=== PATIENT | female | born 1935 | race Caucasian/White ===

== ENCOUNTER 2020-03-15 17:21 | Inpatient (IN) | payer MEDICARE ==
[~2020-03-15] VITALS: Ht 177.8 cm; Wt 63.0 kg
[2020-03-15 20:50] VITALS: BP 125/64
--- NOTE | 2020-03-15 21:45 | NUR ---
admitted 84 y/o female pt via gurney from [facility], transferred to bed via sliding board. AOx2. S/P fall and had IM nailing right humeral fx by Dr. Merrill. Sling on right arm in place. No known drug allergies. Covid negative as of 03/11/20.
[2020-03-15] MEDS ORDERED: ACET-2154 PO (23:14)
[2020-03-15] MEDS ORDERED: APIX5TAB PO (23:14)
[2020-03-15] MEDS ORDERED: QUET25TA PO (23:14)
[2020-03-15] MEDS ORDERED: AMIO200T5 PO (23:14)
[2020-03-15] MEDS ORDERED: DOCU100C36 PO (23:14)
--- NOTE | 2020-03-16 | NUR ---
senior living assessment done. Admission orders obtained. HS care rendered. Incontinent of loose BM. Kept clean and comfortable. Safety measures implemented and maintained.
[2020-03-16] MEDS: HYDROCODONE/APAP 5-325MG TABLET PO PRN (01:49)
[2020-03-16 04:40] VITALS: BP 138/52
[2020-03-16 08:00] VITALS: BP 145/55
[2020-03-16] MEDS ORDERED: APIXABAN 5 MG TABLET PO SCH (09:00)
[2020-03-16] MEDS ORDERED: Z GUARD REMEDY PASTE 57 GM TUBE TOP PRN (09:00)
[2020-03-16] MEDS: DOCUSATE SODIUM 100 MG CAPSULE PO SCH (09:27)
[2020-03-16] MEDS: AMIODARONE HCL 200 MG TABLET PO SCH ×2 (09:28→17:00)
--- NOTE | 2020-03-16 09:30 | NUR ---
Received patient awake, oriented x 2 with episode of forgetfulness, on room air, not in any form of distress. Noted with original surgical dressing on the right upper arm and swollen right forearm. Elevated right arm with pillow. Patient compliant with medications and tolerated well. Assisted with her needs. Call light and frequently used items placed within patient's reach.
[2020-03-16 09:44] LABS: BASOPHILS # (AUTO) 0.1 K/uL (0.0-8.0); BASOPHILS % (AUTO) 0.6 % (0.0-2.0); EOSINOPHILS # (AUTO) 0.1 K/uL (0.0-0.7); EOSINOPHILS % (AUTO) 0.4 % (0.0-7.0); HEMATOCRIT 33.5 % (31.2-41.9); HEMOGLOBIN 11.3 g/dL (10.9-14.3); LYMPHOCYTES # (AUTO) 0.5 K/uL (20.0-40.0); LYMPHOCYTES % (AUTO) 4.3 % (20.5-51.5); MEAN CORPUSCULAR HEMOGLOBIN 31.3 uug (24.7-32.8); MEAN CORPUSCULAR HGB CONC 34 g/dL (32.3-35.6); MEAN CORPUSCULAR VOLUME 92.8 fL (75.5-95.3); MONOCYTES # (AUTO) 0.7 K/uL (2.0-10.0); MONOCYTES % (AUTO) 5.8 % (0.0-11.0); NEUTROPHILS # (AUTO) 10.5 K/uL (1.8-8.9); NEUTROPHILS % (AUTO) 88.9 % (38.5-71.5); PLATELET COUNT (AUTO) 282 K/uL (179-408); RED BLOOD CELL COUNT(AUTO) 3.61 MIL/uL (3.63-4.92); WHITE BLOOD COUNT (AUTO) 11.8 K/uL (3.8-11.8)
[2020-03-16 09:55] LABS: CREATININE 0.9 mg/dL (0.6-1.3); POTASSIUM 3.1 mmol/L (3.5-5.1)
[2020-03-16 10:00] LABS: BILIRUBIN,TOTAL 0.8 mg/dL (0.2-1.0); TOTAL PROTEIN, SERUM 6.2 g/dL (6.4-8.2)
[2020-03-16] MEDS: APIXABAN 5 MG TABLET PO SCH ×2 (10:10→18:29)
[2020-03-16 11:00] VITALS: BP 150/54
[2020-03-16 15:19] VITALS: BP 155/51
[2020-03-16 16:58] LABS: LYMPHOCYTES % (MANUAL) 8 % (20-40); MONOCYTES % (MANUAL) 3 % (2-10); NEUTROPHILS % (MANUAL) 89 % (42-75)
--- NOTE | 2020-03-16 17:00 | NUR ---
AMIODARONE 400MG NOT ADMINISTERED. HR= 59.
[2020-03-16 20:00] VITALS: BP 137/48
[2020-03-16] MEDS: QUETIAPINE FUMARATE 25 MG TABLET PO SCH (20:25)
--- NOTE | 2020-03-16 23:30 | NUR ---
Received pt resting in bed. AAO x1-2. On 2L O2 via NC, no acute distress noted. Denies pain/ discomfort. Due med given as ordered. Safety measures maintained. Call light and personal items within reach. Will continue to monitor.
[2020-03-17 04:00] VITALS: BP 129/66
--- NOTE | 2020-03-17 07:30 | NUR ---
received in bed awake pt is really depressed saying she dont want to live saying she wants to made aware
[2020-03-17 07:47] LABS: BASOPHILS % (AUTO) 0.2 % (0.0-2.0); EOSINOPHILS % (AUTO) 0.1 % (0.0-7.0); HEMOGLOBIN 10.7 g/dL (10.9-14.3); LYMPHOCYTES # (AUTO) 0.9 K/uL (20.0-40.0); LYMPHOCYTES % (AUTO) 7.3 % (20.5-51.5); MEAN CORPUSCULAR HEMOGLOBIN 31.6 uug (24.7-32.8); MEAN CORPUSCULAR HGB CONC 35 g/dL (32.3-35.6); MEAN CORPUSCULAR VOLUME 91.6 fL (75.5-95.3); MONOCYTES % (AUTO) 8.9 % (0.0-11.0); NEUTROPHILS # (AUTO) 9.8 K/uL (1.8-8.9); NEUTROPHILS % (AUTO) 83.5 % (38.5-71.5); PLATELET COUNT (AUTO) 269 K/uL (179-408); RED BLOOD CELL COUNT(AUTO) 3.38 MIL/uL (3.63-4.92); WHITE BLOOD COUNT (AUTO) 11.7 K/uL (3.8-11.8)
[2020-03-17 07:56] LABS: CREATININE 0.7 mg/dL (0.6-1.3); POTASSIUM 3.2 mmol/L (3.5-5.1)
[2020-03-17 08:00] VITALS: BP 141/58
[2020-03-17] MEDS: DOCUSATE SODIUM 100 MG CAPSULE PO SCH (08:25)
[2020-03-17] MEDS: APIXABAN 5 MG TABLET PO SCH ×2 (08:26→16:11)
[2020-03-17] MEDS: AMIODARONE HCL 200 MG TABLET PO SCH ×2 (08:26→16:08)
--- NOTE | 2020-03-17 08:30 | NUR ---
pt is refusing to eat saying she is nauseas.
--- NOTE | 2020-03-17 09:50 | NUR ---
case reviewer made aware about the pt saying she wants to
[2020-03-17] MEDS ORDERED: POTASSIUM CHLORIDE 20 MEQ TAB.PRT.SR PO ONE (10:15)
[2020-03-17] MEDS: ONDANSETRON ODT 4 MG TAB.RAPDIS SL PRN ×2 (10:57→20:16)
--- NOTE | 2020-03-17 12:27 | NUR ---
pt refusing to eat lunch
--- NOTE | 2020-03-17 14:39 | NUR ---
INTERDISCIPLINARY TEAM CONFERENCE
[2020-03-17 16:12] VITALS: BP 123/51
--- NOTE | 2020-03-17 18:17 | NUR ---
pt seen by dr gay
[2020-03-17 20:00] VITALS: BP 115/79
[2020-03-17] MEDS: ACETAMINOPHEN 325 MG TABLET PO PRN (20:11)
[2020-03-17] MEDS: QUETIAPINE FUMARATE 25 MG TABLET PO SCH (20:11)
--- NOTE | 2020-03-17 21:50 | NUR ---
Received pt resting in bed. AAO x2. No acute distress noted. C/o mild pain on right arm, PRN tylenol and other due med given as ordered. Pt complained of being nauseous, relieved by Zofran. Pt denies suicidal ideation, but appears to be withdrawn. Safety measures maintained. Bed alarm on. Will do frequent roundings. Will continue to monitor.
[2020-03-18 05:15] VITALS: BP 135/68
[2020-03-18] MEDS ORDERED: POTASSIUM CHLORIDE 20 MEQ TAB.PRT.SR PO ONE ×2 (08:00→09:45)
[2020-03-18] MEDS: DOCUSATE SODIUM 100 MG CAPSULE PO SCH (09:32)
[2020-03-18] MEDS: AMIODARONE HCL 200 MG TABLET PO SCH ×2 (09:35→18:08)
[2020-03-18] MEDS: APIXABAN 5 MG TABLET PO SCH ×2 (09:36→18:09)
--- NOTE | 2020-03-18 10:44 | NUR ---
Potassium replaced with 40 mEq PO x 1 in powder form as ordered. The potassium due at 8am and 9am were non-administered because they were duplicates and patient is unable to swallow the large pills and uncrushable.
[2020-03-18] MEDS ORDERED: POTASSIUM CHLORIDE 20 MEQ POWDER PACKET PO ONE (10:45)
--- NOTE | 2020-03-18 10:55 | NUR ---
INDIVIDUALIZED PLAN OF CARE
--- NOTE | 2020-03-18 15:00 | NUR ---
Report received from physical therapist that patient complained of dizziness while patient is sitting on the edge of the bed. Vital signs within normal. Informed Dr. Chang with no new order at this time. Patient denied any complain of dizziness after therapeutic exercise. Call light placed within patient's reach. Will continue to monitor .
[2020-03-18 16:00] VITALS: BP 117/63
--- NOTE | 2020-03-18 19:00 | NUR ---
RECD PT IN BED,ALERT ,ORIENTEDX 1, HARD OF HEARING, SLING ON RT ARM IN PLACE,NEEDS ATTENDED TO.NO DISTRESS NOTED.
[2020-03-18 20:00] VITALS: BP 127/64
--- NOTE | 2020-03-18 20:55 | NUR ---
REPOSITIONED FOR COMFORT,RT ELBOW SWOLLEN, ELEVATED ON PILLOW, FACIAL GRIMACING AND MOANING NOTED, MEDICATED WITH NORCO ORDERED.
[2020-03-18] MEDS: QUETIAPINE FUMARATE 25 MG TABLET PO SCH (21:04)
[2020-03-18] MEDS: HYDROCODONE/APAP 5-325MG TABLET PO PRN (21:05)
[2020-03-19 08:10] LABS: BASOPHILS % (AUTO) 0.1 % (0.0-2.0); EOSINOPHILS # (AUTO) 0.2 K/uL (0.0-0.7); EOSINOPHILS % (AUTO) 1.6 % (0.0-7.0); HEMATOCRIT 33.4 % (31.2-41.9); HEMOGLOBIN 11.3 g/dL (10.9-14.3); LYMPHOCYTES # (AUTO) 1.3 K/uL (20.0-40.0); LYMPHOCYTES % (AUTO) 11.6 % (20.5-51.5); MEAN CORPUSCULAR HEMOGLOBIN 30.9 uug (24.7-32.8); MEAN CORPUSCULAR HGB CONC 34 g/dL (32.3-35.6); MEAN CORPUSCULAR VOLUME 91.8 fL (75.5-95.3); MONOCYTES # (AUTO) 1.1 K/uL (2.0-10.0); MONOCYTES % (AUTO) 10.4 % (0.0-11.0); NEUTROPHILS # (AUTO) 8.4 K/uL (1.8-8.9); NEUTROPHILS % (AUTO) 76.3 % (38.5-71.5); PLATELET COUNT (AUTO) 388 K/uL (179-408); RED BLOOD CELL COUNT(AUTO) 3.64 MIL/uL (3.63-4.92)
[2020-03-19 08:23] VITALS: BP 138/67
[2020-03-19 08:56] LABS: CARBON DIOXIDE 24 mmol/L (21-32); CHLORIDE 106 mmol/L (98-107); CREATININE 0.5 mg/dL (0.6-1.3); GLUCOSE 105 mg/dL (74-106); POTASSIUM 3.3 mmol/L (3.5-5.1); UREA NITROGEN, BLOOD 17 mg/dL (7-18)
[2020-03-19] MEDS: AMIODARONE HCL 200 MG TABLET PO SCH ×2 (08:59→17:33)
[2020-03-19] MEDS: DOCUSATE SODIUM 100 MG CAPSULE PO SCH (08:59)
[2020-03-19] MEDS: APIXABAN 5 MG TABLET PO SCH ×2 (08:59→17:25)
[2020-03-19 14:29] VITALS: BP 135/60
--- NOTE | 2020-03-19 19:30 | NUR ---
report given to oncoming nurse, pt resting, all medications given as ordered.
[2020-03-19 20:00] VITALS: BP 146/62
--- NOTE | 2020-03-19 20:00 | NUR ---
OPENING NOTES: PT resting in bed, awake alert and oriented x3. PT on RA saturating 99%, no signs of distress noted. Bed in low and locked position, safety precautions in place, will continue to monitor and follow the plan of care.
[2020-03-19] MEDS: QUETIAPINE FUMARATE 25 MG TABLET PO SCH (21:36)
[2020-03-20 04:00] VITALS: BP 130/68
--- NOTE | 2020-03-20 06:40 | NUR ---
CLOSING NOTES: PT resting in bed, awake alert and oriented x3. PT on RA saturating 97%, no signs of distress noted. Bed in low and locked position, safety precautions in place, will continue to monitor and follow the plan of care. Will endorse to oncoming shift.
[2020-03-20 08:28] VITALS: BP 138/78
[2020-03-20] MEDS: AMIODARONE HCL 200 MG TABLET PO SCH ×2 (08:52→17:17)
[2020-03-20] MEDS: DOCUSATE SODIUM 100 MG CAPSULE PO SCH (08:53)
[2020-03-20] MEDS: APIXABAN 5 MG TABLET PO SCH ×2 (08:54→17:18)
[2020-03-20 15:24] VITALS: BP 122/62
[2020-03-20] MEDS: ONDANSETRON ODT 4 MG TAB.RAPDIS SL PRN (17:26)
[2020-03-20 20:26] VITALS: BP 145/73
[2020-03-20] MEDS: QUETIAPINE FUMARATE 25 MG TABLET PO SCH (21:12)
[2020-03-21 04:22] VITALS: BP 134/76
--- NOTE | 2020-03-21 06:28 | NUR ---
Slept well throughout the night. VSS no acute distress noted. Repositioned for comfort. Turned to sides. Kept comfortable. Incontinent of bowel and bladder. Kept clean and dry. All due meds given. All needs attended and met.
[2020-03-21 08:00] VITALS: BP_SYST 140
[2020-03-21] MEDS: DOCUSATE SODIUM 100 MG CAPSULE PO SCH (09:35)
[2020-03-21] MEDS: AMIODARONE HCL 200 MG TABLET PO SCH ×2 (09:36→17:44)
[2020-03-21] MEDS: APIXABAN 5 MG TABLET PO SCH ×2 (09:41→17:46)
[2020-03-21 16:53] VITALS: BP 125/74
[2020-03-21 21:03] VITALS: BP 118/61
[2020-03-21] MEDS: QUETIAPINE FUMARATE 25 MG TABLET PO SCH (21:14)
--- NOTE | 2020-03-22 04:08 | NUR ---
No significant change or event throughout the shift. No acute distress noted. Turned and repositioned All needs attended to promptly. Safety measures maintained. Call light and personal items within reach. Continue to monitor.
[2020-03-22 05:46] VITALS: BP 95/71
[2020-03-22 07:50] LABS: BASOPHILS # (AUTO) 0.1 K/uL (0.0-8.0); BASOPHILS % (AUTO) 0.7 % (0.0-2.0); EOSINOPHILS # (AUTO) 0.2 K/uL (0.0-0.7); EOSINOPHILS % (AUTO) 1.8 % (0.0-7.0); HEMATOCRIT 34.3 % (31.2-41.9); HEMOGLOBIN 11.5 g/dL (10.9-14.3); LYMPHOCYTES # (AUTO) 1.1 K/uL (20.0-40.0); MEAN CORPUSCULAR HEMOGLOBIN 31.1 uug (24.7-32.8); MEAN CORPUSCULAR HGB CONC 34 g/dL (32.3-35.6); MEAN CORPUSCULAR VOLUME 92.2 fL (75.5-95.3); MONOCYTES # (AUTO) 0.8 K/uL (2.0-10.0); MONOCYTES % (AUTO) 7.2 % (0.0-11.0); NEUTROPHILS # (AUTO) 9.1 K/uL (1.8-8.9); NEUTROPHILS % (AUTO) 80.3 % (38.5-71.5); PLATELET COUNT (AUTO) 448 K/uL (179-408); RED BLOOD CELL COUNT(AUTO) 3.71 MIL/uL (3.63-4.92); WHITE BLOOD COUNT (AUTO) 11.3 K/uL (3.8-11.8)
[2020-03-22 08:01] LABS: CREATININE 0.8 mg/dL (0.6-1.3)
[2020-03-22] MEDS: HYDROCODONE/APAP 5-325MG TABLET PO PRN ×2 (08:31→20:48)
[2020-03-22] MEDS: AMIODARONE HCL 200 MG TABLET PO SCH ×2 (08:32→17:22)
[2020-03-22] MEDS: APIXABAN 5 MG TABLET PO SCH ×2 (08:35→17:24)
[2020-03-22] MEDS: DOCUSATE SODIUM 100 MG CAPSULE PO SCH (08:39)
[2020-03-22 08:53] VITALS: BP 125/67
[2020-03-22 08:54] LABS: POTASSIUM 2.7 mmol/L (3.5-5.1)
--- NOTE | 2020-03-22 08:55 | NUR ---
reported low potassium 2.[address] barrera with new order, noted
[2020-03-22] MEDS ORDERED: POTASSIUM CHLORIDE 20 MEQ POWDER PACKET PO ONE (09:30)
[2020-03-22] MEDS: POTASSIUM CHLORIDE 20 MEQ POWDER PACKET PO SCH ×2 (10:10→17:24)
--- NOTE | 2020-03-22 10:11 | NUR ---
potassium K 80meq will be the administered as total dose
[2020-03-22 16:01] VITALS: BP 109/73
--- NOTE | 2020-03-22 18:27 | NUR ---
patient seemed to be more agitated today, tried to calm down, needs met timely, kept clean and dry, replaced potassium as ordered, no other changes noted during shift
--- NOTE | 2020-03-22 19:26 | NUR ---
Patient had no verbalization of suicidal ideation during shift.
[2020-03-22 20:06] VITALS: BP 125/76
[2020-03-22] MEDS: QUETIAPINE FUMARATE 25 MG TABLET PO SCH (20:12)
[2020-03-22] MEDS: ACETAMINOPHEN 325 MG TABLET PO PRN (23:30)
[2020-03-23] MEDS: HYDROCODONE/APAP 5-325MG TABLET PO PRN ×3 (02:20→20:55)
[2020-03-23 04:06] VITALS: BP 120/79
[2020-03-23 08:00] VITALS: BP 116/78
[2020-03-23] MEDS: DOCUSATE SODIUM 100 MG CAPSULE PO SCH (08:28)
[2020-03-23] MEDS: AMIODARONE HCL 200 MG TABLET PO SCH ×2 (08:41→17:20)
[2020-03-23] MEDS: APIXABAN 5 MG TABLET PO SCH ×2 (08:42→17:21)
[2020-03-23 13:03] LABS: POTASSIUM 3.3 mmol/L (3.5-5.1)
[2020-03-23 16:00] VITALS: BP 145/68
[2020-03-23] MEDS: ENSURE ENLIVE (VAN) 240 ML LIQUID PO SCH (19:04)
[2020-03-23 20:00] VITALS: BP 129/75
[2020-03-23] MEDS: QUETIAPINE FUMARATE 25 MG TABLET PO SCH (20:51)
[2020-03-24 04:00] VITALS: BP 153/67
--- NOTE | 2020-03-24 07:30 | NUR ---
Received patient sleeping in bed. No signs and symptoms of respiratory distress. Safety measures maintained. Bed on low position and bed alarm on. Will continue to monitor.
[2020-03-24] MEDS: DOCUSATE SODIUM 100 MG CAPSULE PO SCH (08:13)
[2020-03-24] MEDS: APIXABAN 5 MG TABLET PO SCH ×2 (08:13→17:39)
[2020-03-24] MEDS: AMIODARONE HCL 200 MG TABLET PO SCH ×2 (08:16→17:34)
[2020-03-24] MEDS: ENSURE ENLIVE (VAN) 240 ML LIQUID PO SCH ×3 (08:20→17:32)
[2020-03-24 08:35] VITALS: BP 145/60
[2020-03-24] MEDS ORDERED: POTASSIUM CHLORIDE 20 MEQ POWDER PACKET PO ONE (10:30)
[2020-03-24] MEDS: OXYCODONE/APAP 5-325 MG TABLET PO PRN (13:33)
--- NOTE | 2020-03-24 14:04 | NUR ---
INTERDISCIPLINARY TEAM CONFERENCE
[2020-03-24 15:47] VITALS: BP 130/50
[2020-03-24 20:28] VITALS: BP 145/62
[2020-03-24] MEDS: ACETAMINOPHEN 325 MG TABLET PO PRN (20:49)
[2020-03-24] MEDS: QUETIAPINE FUMARATE 25 MG TABLET PO SCH (20:49)
[2020-03-25 04:00] VITALS: BP 110/53
--- NOTE | 2020-03-25 06:14 | NUR ---
Refused AM lab draw.
--- NOTE | 2020-03-25 06:18 | NUR ---
Shift End Report: No significant event reported all night, Slept well. Continue current rehab plan of care.
[2020-03-25 07:55] VITALS: BP 154/61
[2020-03-25] MEDS: AMIODARONE HCL 200 MG TABLET PO SCH ×2 (09:03→17:08)
[2020-03-25] MEDS: APIXABAN 5 MG TABLET PO SCH ×2 (09:07→17:08)
[2020-03-25] MEDS: ENSURE ENLIVE (VAN) 240 ML LIQUID PO SCH ×4 (09:15→17:08)
[2020-03-25] MEDS: DOCUSATE SODIUM 100 MG CAPSULE PO SCH (09:16)
--- NOTE | 2020-03-25 09:41 | NUR ---
received pt resting in bed, bed in low and locked position, side rails upx2, pt on RA. safety precautions in place, no distress noted. will continue to monitor.
[2020-03-25 14:56] VITALS: BP 127/58
[2020-03-25 17:41] LABS: CREATININE 0.8 mg/dL (0.6-1.3)
--- NOTE | 2020-03-25 18:47 | NUR ---
pt resting in bed no distress noted, pt on RA saturating at 97%. all medications given per MD order, pt tolerated well. bed in low and locked position, fall and safety precautions in place. bed alarm on. will endorse to oncoming nurse.
[2020-03-25 20:00] VITALS: BP 145/47
[2020-03-25] MEDS: QUETIAPINE FUMARATE 25 MG TABLET PO SCH (21:20)
[2020-03-25] MEDS: ONDANSETRON ODT 4 MG TAB.RAPDIS SL PRN (21:20)
[2020-03-25] MEDS: OXYCODONE/APAP 5-325 MG TABLET PO PRN (23:12)
--- NOTE | 2020-03-26 01:00 | NUR ---
Received pt resting in bed no distress noted, Axox2-3, very hard of hearing. Able to make needs known. VSS,pt on RA saturating at 96%, no SOB or acute distress noted. Complaint of 8/10 pain on right arm, administered PRN Percocet. Pt complaint of feeling uneasy and nauseous administered Zofran, effective. All medications given per MD order, pt tolerated well. Turned and repositioned kept comfortable. All needs attended to promptly. Bed in low and locked position, fall and safety precautions in place. Bed alarm on, call light and all personal belongings within reach. Will continue plan of care.
[2020-03-26 08:03] LABS: BASOPHILS # (AUTO) 0.2 K/uL (0.0-8.0); BASOPHILS % (AUTO) 2.3 % (0.0-2.0); EOSINOPHILS # (AUTO) 0.3 K/uL (0.0-0.7); EOSINOPHILS % (AUTO) 3.6 % (0.0-7.0); HEMATOCRIT 32.8 % (31.2-41.9); HEMOGLOBIN 11.1 g/dL (10.9-14.3); LYMPHOCYTES # (AUTO) 1.3 K/uL (20.0-40.0); LYMPHOCYTES % (AUTO) 16.9 % (20.5-51.5); MEAN CORPUSCULAR HEMOGLOBIN 31.7 uug (24.7-32.8); MEAN CORPUSCULAR HGB CONC 34 g/dL (32.3-35.6); MEAN CORPUSCULAR VOLUME 93.8 fL (75.5-95.3); MONOCYTES # (AUTO) 0.7 K/uL (2.0-10.0); MONOCYTES % (AUTO) 8.5 % (0.0-11.0); NEUTROPHILS # (AUTO) 5.3 K/uL (1.8-8.9); NEUTROPHILS % (AUTO) 68.7 % (38.5-71.5); PLATELET COUNT (AUTO) 393 K/uL (179-408); WHITE BLOOD COUNT (AUTO) 7.7 K/uL (3.8-11.8)
[2020-03-26 08:19] LABS: CREATININE 0.7 mg/dL (0.6-1.3); MAGNESIUM 1.6 mg/dL (1.8-2.4); PHOSPHOROUS 2.8 mg/dL (2.5-4.9); POTASSIUM 4.3 mmol/L (3.5-5.1)
[2020-03-26] MEDS: DOCUSATE SODIUM 100 MG CAPSULE PO SCH (10:19)
[2020-03-26] MEDS: AMIODARONE HCL 200 MG TABLET PO SCH ×2 (10:19→17:40)
[2020-03-26] MEDS: APIXABAN 5 MG TABLET PO SCH ×2 (10:20→17:43)
[2020-03-26] MEDS: ENSURE ENLIVE (VAN) 240 ML LIQUID PO SCH ×3 (10:20→17:41)
[2020-03-26 10:25] VITALS: BP 120/49
[2020-03-26] MEDS ORDERED: MAGNESIUM OXIDE 400 MG TABLET PO ONE (10:45)
--- NOTE | 2020-03-26 12:00 | NUR ---
PT NOTE noted pt attempting to get out of chair when walking by hallway, pt reported she wants to get back into bed. pt was left sitting up in chair while bed sheet change was made earlier today around 11am. As pt was being approached pt readjusting herself to stand and heard pts L arm do a cracking noise. Called DANIEL Solorio to assist with pt to return BTB. Pt assisted BTB and cont c/o pain, RN made aware. Lead Pt made aware of pt c/o pain with AGGIE.
[2020-03-26 16:15] VITALS: BP 108/54
[2020-03-26] MEDS: OXYCODONE/APAP 5-325 MG TABLET PO PRN (17:40)
[2020-03-26 20:00] VITALS: BP 145/70
[2020-03-26] MEDS: QUETIAPINE FUMARATE 25 MG TABLET PO SCH (20:29)
[2020-03-26] MEDS: ACETAMINOPHEN 325 MG TABLET PO PRN (21:34)
--- NOTE | 2020-03-26 21:34 | NUR ---
Received pt resting in bed no distress noted, Axox2-3, very hard of hearing. Able to make needs known. VSS ,pt on RA saturating at 96%, no SOB or acute distress noted. Complaint of 7/10 pain on right arm and pain in left arm as well. Administered Tylenol PRN. All due medication administered, tolerated well. Turned and repositioned, kept comfortable, both heels offloaded with pillow. All needs attended to promptly. Bed in low and locked position, fall and safety precautions in place. Bed alarm on, call light and all personal belongings within reach. Will continue plan of care.
[2020-03-27] MEDS: OXYCODONE/APAP 5-325 MG TABLET PO PRN ×3 (04:22→17:19)
--- NOTE | 2020-03-27 04:25 | NUR ---
administered PRN Percocet for pain, complaint of 8/10 pain right arm and 5/10 pain in left.
[2020-03-27 04:27] VITALS: BP 125/52
[2020-03-27 08:54] VITALS: BP 116/50
[2020-03-27] MEDS: APIXABAN 5 MG TABLET PO SCH ×2 (09:00→17:20)
[2020-03-27] MEDS: DOCUSATE SODIUM 100 MG CAPSULE PO SCH (09:33)
[2020-03-27] MEDS: AMIODARONE HCL 200 MG TABLET PO SCH ×2 (09:33→17:00)
[2020-03-27] MEDS: ENSURE ENLIVE (VAN) 240 ML LIQUID PO SCH ×3 (09:38→17:21)
[2020-03-27 16:03] VITALS: BP 101/49
[2020-03-27 20:06] VITALS: BP 130/61
[2020-03-27] MEDS: QUETIAPINE FUMARATE 25 MG TABLET PO SCH (20:36)
[2020-03-27] MEDS: ACETAMINOPHEN 325 MG TABLET PO PRN (20:36)
--- NOTE | 2020-03-27 21:36 | NUR ---
resting bed. Axox2-3, very hard of hearing. Able to make needs known. VSS, no SOB or acute distress noted. Complaint of 8/10 pain on right and left arm, both stabilized in slings. Applied ice and administered Tylenol PRN. All medications given, tolerated well. Turned and repositioned/kept comfortable, Both heels offloaded. All needs attended to promptly. Bed in low and locked position, fall and safety precautions in place. Bed alarm on, call light and all personal belongings within reach. Will continue plan of care.
[2020-03-28] MEDS: OXYCODONE/APAP 5-325 MG TABLET PO PRN ×3 (01:46→16:12)
[2020-03-28 04:00] VITALS: BP 158/58
--- NOTE | 2020-03-28 07:45 | NUR ---
Received pt in bed, awake. A&O x3, [place]SA[place], able to make needs known. No SOB, no s/s of acute distress noted. Pt c/o 10/12 pain BL arms, both stabilized in slings. Belongings and call light within reach, reinforced usage, pt verbalized understanding. Bed low and in locked position, bed alarm on, safety measures in place. Will continue to monitor.
[2020-03-28] MEDS: DOCUSATE SODIUM 100 MG CAPSULE PO SCH (08:21)
[2020-03-28] MEDS: AMIODARONE HCL 200 MG TABLET PO SCH ×2 (08:27→16:14)
[2020-03-28] MEDS: APIXABAN 5 MG TABLET PO SCH ×2 (08:40→16:19)
[2020-03-28] MEDS: ENSURE ENLIVE (VAN) 240 ML LIQUID PO SCH ×3 (08:44→18:21)
--- NOTE | 2020-03-28 08:46 | NUR ---
Pt c/o 8/10 pain BL arms. PRN Percocet administered per order. Will continue to monitor.
[2020-03-28 12:56] VITALS: BP 132/62
--- NOTE | 2020-03-28 16:15 | NUR ---
Pt c/o BUE pain 8/10 (adult scale). PRN Percocet administered per order. Will continue to monitor for effectiveness.
[2020-03-28 16:27] VITALS: BP 121/57
--- NOTE | 2020-03-28 19:29 | NUR ---
EOSS: Pt in bed. A&O x2-3, able to make needs known. No SOB, no s/s of acute distress noted. BL arms stabilized in slings. Medications administered per order. Care given per order. All needs met. Repositioned and turned frequently. Pt worked with physical therapy today, tolerated well. Belongings and call light within reach. Bed low and in locked position, bed alarm on, safety measures in place. Will endorse care to car shifter.
[2020-03-28 20:00] VITALS: BP 127/52
[2020-03-28] MEDS: QUETIAPINE FUMARATE 25 MG TABLET PO SCH (20:29)
[2020-03-28] MEDS: ACETAMINOPHEN 325 MG TABLET PO PRN (20:29)
[2020-03-29] MEDS: OXYCODONE/APAP 5-325 MG TABLET PO PRN ×3 (01:19→19:56)
--- NOTE | 2020-03-29 01:33 | NUR ---
Pt c/o 9/10 pain BL arms. PRN Percocet administered per order. Will continue to monitor.
[2020-03-29 04:00] VITALS: BP 126/59
[2020-03-29] MEDS: ACETAMINOPHEN 325 MG TABLET PO PRN (06:05)
[2020-03-29 08:00] VITALS: BP 123/54
[2020-03-29] MEDS: DOCUSATE SODIUM 100 MG CAPSULE PO SCH (08:51)
[2020-03-29] MEDS: AMIODARONE HCL 200 MG TABLET PO SCH ×2 (08:51→17:33)
[2020-03-29] MEDS: APIXABAN 5 MG TABLET PO SCH ×2 (08:54→17:34)
[2020-03-29] MEDS: ENSURE ENLIVE (VAN) 240 ML LIQUID PO SCH ×3 (09:01→17:34)
--- NOTE | 2020-03-29 10:58 | NUR ---
Dr. Guerrero in the unit, update given and informed MD regarding result of x-ray of left humerus done on 03/26/20 and MD said she will call ortho consult.
--- NOTE | 2020-03-29 13:27 | NUR ---
TEXTED DR. CELESTE FOR MRI APPROVAL.
[2020-03-29 15:23] VITALS: BP 115/41
--- NOTE | 2020-03-29 19:06 | NUR ---
Dr. Bedoya in the unit, update given to MD and ordered discharge patient to [facility] for left humerus fracture.
--- NOTE | 2020-03-29 19:30 | NUR ---
RECEIVED REPORT FROM OUTGOING NURSE. PATIENT AWAKE, ALERT IN BED, WATCHING TV DURING ROUNDS. PRESENTED COMPLAINT OF LA PAIN IN SCALE OF 8/10. BILATERAL SLING IN USED. ABLE TO MOVE FINGERS WITHOUT DIFFICULTY. NO S/S OF CIRCULATION IMPAIRMENT NOTED. GOOD REFILL, GOOD COLOR NOTED.
[2020-03-29] MEDS: QUETIAPINE FUMARATE 25 MG TABLET PO SCH (19:56)
--- NOTE | 2020-03-29 19:56 | NUR ---
Percocet 1 tab oral given for pain as ordered and needed. Will monitor.
[2020-03-29 20:00] VITALS: BP 128/62
--- NOTE | 2020-03-29 21:48 | NUR ---
Report given to oncoming nurse Jacqueline RN.
[2020-03-29] MEDS ORDERED: OXYCODONE HCL 5 MG TABLET PO SCH (22:00)
[2020-03-29] MEDS ORDERED: ONDA4TAB11 SL (23:09)
[2020-03-29] MEDS ORDERED: OXYC-128 PO (23:09)
[2020-03-30 04:00] VITALS: BP 122/56
[2020-04-06] MEDS ORDERED: LACT10SO3 PO (13:55)
[2020-04-06] MEDS ORDERED: MORP30TA59 PO (15:20)
== END 2020-03-29 22:25 | disposition short-term general hospital (02) | DRG 560 ==
LOC: UNDOADMIN 17:21
PROVIDERS: ADMIT Physical Medicine & Rehabilitation Pain Medicine; ATTEND Physical Medicine & Rehabilitation Pain Medicine
DX: M84.421D Pathological fracture, right humerus, subsequent encounter for fracture with routine healing (principal); N39.0 Urinary tract infection, site not specified; N17.9 Acute kidney failure, unspecified; M84.422A Pathological fracture, left humerus, initial encounter for fracture; R45.851 Suicidal ideations; F32.3 Major depressive disorder, single episode, severe with psychotic features; Z91.81 History of falling; F03.90 Unspecified dementia, unspecified severity, without behavioral disturbance, psychotic disturbance, mood disturbance, and anxiety; I48.91 Unspecified atrial fibrillation; E87.6 Hypokalemia; I10 Essential (primary) hypertension; K21.9 Gastro-esophageal reflux disease without esophagitis; Z90.710 Acquired absence of both cervix and uterus; Z88.1 Allergy status to other antibiotic agents; Z88.8 Allergy status to other drugs, medicaments and biological substances; B96.20 Unspecified Escherichia coli [E. coli] as the cause of diseases classified elsewhere
CPT/HCPCS: 36415; 70030-TC; 73060; 83735; 84100; 85025; A4663; Q0162

== ENCOUNTER 2020-03-29 22:49 | Inpatient (IN) | payer MEDICARE ==
[~2020-03-29] VITALS: Ht 165.1 cm; Wt 56.8 kg
[~2020-03-29 22:49] MED LIST: ACET-2154 PO; AMIO200T5 PO; APIX5TAB PO; DOCU100C36 PO; QUET25TA PO
--- NOTE | 2020-03-29 23:00 | NUR ---
PT TRANSFERRED TO [facility] IN THE [facility]. PT IN NO ACUTE DISTRESS. PT HAS SLINGS ON BOTH ARMS. SAFETY AND COMFORT PROVIDED. WILL CONTINUE TO MONITOR.
[2020-03-29] MEDS ORDERED: ONDA4TAB11 SL (23:09)
[2020-03-29] MEDS ORDERED: OXYC-128 PO (23:09)
[2020-03-29] MEDS ORDERED: MORPHINE SULFATE 2 MG/1 ML DISP.SYRIN IV PRN (23:30)
[2020-03-29] MEDS ORDERED: ZOLPIDEM 5 MG TABLET PO PRN (23:30)
[2020-03-29] MEDS ORDERED: MAGNESIUM HYDROXIDE 30 ML LIQUID UDC PO PRN (23:30)
[2020-03-29] MEDS ORDERED: ONDANSETRON 4 MG/2 ML VIAL IV PRN (23:30)
[2020-03-29] MEDS ORDERED: Z GUARD REMEDY PASTE 57 GM TUBE TOP PRN (23:30)
[2020-03-29] MEDS ORDERED: ACETAMINOPHEN 325 MG TABLET PO PRN (23:30)
[2020-03-30] MEDS ORDERED: ACETAMINOPHEN 325 MG TABLET PO PRN
[2020-03-30] MEDS: HYDROCODONE/APAP 5-325MG TABLET PO PRN ×2 (01:08→21:29)
[2020-03-30] MEDS: IV D5 1/2 NS 1000 ML 1,000 ML IV PRN ×2 (01:59→19:42)
[2020-03-30 04:00] VITALS: BP 122/56
[2020-03-30] MEDS: OXYCODONE/APAP 5-325 MG TABLET PO SCH ×5 (05:53→23:11)
[2020-03-30] MEDS: ONDANSETRON ODT 4 MG TAB.RAPDIS SL SCH ×3 (05:54→23:11)
--- NOTE | 2020-03-30 06:26 | NUR ---
PT SLEPT INTERMITTENTLY. PT GIVEN NORCO AT 0108 H FOR PAIN. PRESCRIBED MEDICATION GIVEN AND PT TOLERATED IT WELL. SAFETY AND COMFORT PROVIDED. ALL NEEDS ARE MET. WILL ENDORSE TO INCOMING NURSE FOR CONTINUITY OF CARE.
[2020-03-30 06:45] LABS: BASOPHILS % (AUTO) 1.3 % (0.0-2.0); EOSINOPHILS # (AUTO) 0.1 K/uL (0.0-0.7); EOSINOPHILS % (AUTO) 2.8 % (0.0-7.0); HEMATOCRIT 33.6 % (31.2-41.9); HEMOGLOBIN 11.8 g/dL (10.9-14.3); LYMPHOCYTES # (AUTO) 0.8 K/uL (20.0-40.0); LYMPHOCYTES % (AUTO) 19.7 % (20.5-51.5); MEAN CORPUSCULAR HEMOGLOBIN 32.3 uug (24.7-32.8); MEAN CORPUSCULAR HGB CONC 35 g/dL (32.3-35.6); MEAN CORPUSCULAR VOLUME 91.8 fL (75.5-95.3); MONOCYTES # (AUTO) 0.7 K/uL (2.0-10.0); NEUTROPHILS # (AUTO) 2.3 K/uL (1.8-8.9); NEUTROPHILS % (AUTO) 59.2 % (38.5-71.5); PLATELET COUNT (AUTO) 383 K/uL (179-408); RED BLOOD CELL COUNT(AUTO) 3.66 MIL/uL (3.63-4.92); WHITE BLOOD COUNT (AUTO) 3.9 K/uL (3.8-11.8)
[2020-03-30 07:28] LABS: CREATININE 0.9 mg/dL (0.6-1.3); PHOSPHOROUS 2.9 mg/dL (2.5-4.9); POTASSIUM 4.6 mmol/L (3.5-5.1)
--- NOTE | 2020-03-30 07:30 | NUR ---
Received patient in bed awake alert and oriented times 2. Patient is hard of hearing but is able to make her needs known. Patient is on room air saturating at 97%. Patient is NPO, will be transported to [facility] for MRI without contrast. Patient right arm is in a sling. Patient also have sutures from status post IM nailing on the 03/26. New fracture on left arm from fall at home. Safety measures are in place. Will continue to monitor.
[2020-03-30 08:00] VITALS: BP 152/53
[2020-03-30] MEDS: AMIODARONE HCL 200 MG TABLET PO SCH ×2 (09:00→17:00)
--- NOTE | 2020-03-30 09:30 | NUR ---
Patient picked up by ambulance to be taken to [facility] for MRI. Will continue to monitor when back on the floor.
[2020-03-30] MEDS: DOCUSATE SODIUM 100 MG CAPSULE PO SCH (09:37)
[2020-03-30] MEDS: PANTOPRAZOLE SODIUM 40 MG VIAL IV SCH (09:37)
[2020-03-30] MEDS: APIXABAN 5 MG TABLET PO SCH ×2 (09:39→17:45)
--- NOTE | 2020-03-30 12:00 | NUR ---
Patient is back on the floor. Patient is stable. Complained of pain. Gave scheduled pain medication. Will continue to monitor.
--- NOTE | 2020-03-30 12:28 | NUR ---
WOUND CARE CONSULT: PT PRESENTS WITH RED RASH TO PERINEUM AND INNER BUTTOCKS, PRESENT ON ADMISSION. RECOMMENDATIONS MADE FOR SKIN PROTECTION. DISCUSSED WITH NURSING STAFF. IN AGREEMENT WITH PLAN OF CARE. Addendum: 03/30/20 at 1228 by LUIS READ RN Amended: Links added.
[2020-03-30 12:32] VITALS: BP 150/62
[2020-03-30 15:17] VITALS: BP 131/55
[2020-03-30] MEDS: CLOTRIMAZOLE 1% CREAM 30 GM TUBE TOP SCH (17:48)
[2020-03-30 18:10] LABS: BAND % (MANUAL) 1 % (0-10); LYMPHOCYTES % (MANUAL) 29 % (20-40); NEUTROPHILS % (MANUAL) 62 % (42-75)
[2020-03-30 18:11] LABS: EOSINOPHILS % (MANUAL) 2 % (0-8); MONOCYTES % (MANUAL) 6 % (2-10)
--- NOTE | 2020-03-30 19:15 | NUR ---
Patient is resting in bed. No sign of distress noted. Patient discharge is in process. Pickup is scheduled for 2029. Gave all medications as ordered. Safety precautions are in place. Will endorse to oncoming nurse. Addendum: 03/30/20 at 1917 by KRYSTIAN SALMON RN Charted on the incorrect patient.
--- NOTE | 2020-03-30 19:18 | NUR ---
Patient is resting in bed. No sign of distress noted. Patient is on 2L of oxygen. Patient denies any pain. Gave all medications as ordered. Safety precautions are in place. Will endorse to oncoming nurse.
[2020-03-30 20:00] VITALS: BP 128/51
[2020-03-30] MEDS: QUETIAPINE FUMARATE 25 MG TABLET PO SCH (21:28)
[2020-03-31 04:00] VITALS: BP 116/56
[2020-03-31] MEDS: OXYCODONE/APAP 5-325 MG TABLET PO SCH ×3 (06:03→18:03)
[2020-03-31] MEDS: ONDANSETRON ODT 4 MG TAB.RAPDIS SL SCH ×3 (06:04→21:30)
--- NOTE | 2020-03-31 07:30 | NUR ---
received pt resting in bed, awake alert and oriented x2. Patient is on RA saturating at 96%. IV on the left wrist 20g running D5 1/2 NS at 75ml/hr. bed is in low and locked position, safety precautions in place. will continue to monitor.
[2020-03-31] MEDS: DOCUSATE SODIUM 100 MG CAPSULE PO SCH (10:21)
[2020-03-31] MEDS: PANTOPRAZOLE SODIUM 40 MG VIAL IV SCH (10:40)
[2020-03-31] MEDS: CLOTRIMAZOLE 1% CREAM 30 GM TUBE TOP SCH ×2 (10:42→18:00)
[2020-03-31] MEDS: APIXABAN 5 MG TABLET PO SCH ×2 (10:43→17:58)
[2020-03-31] MEDS: AMIODARONE HCL 200 MG TABLET PO SCH ×2 (10:50→17:00)
[2020-03-31] MEDS: IV D5 1/2 NS 1000 ML 1,000 ML IV PRN (11:07)
[2020-03-31 11:17] VITALS: BP 123/54
[2020-03-31] MEDS: HYDROMORPHONE 1 MG/1 ML DISP.SYRIN SQ PRN ×2 (15:46→20:57)
[2020-03-31 16:38] VITALS: BP 156/48
--- NOTE | 2020-03-31 18:00 | NUR ---
held medication per MD order, Amiodarone, heart rate was 54. Will continue to monitor.
--- NOTE | 2020-03-31 18:30 | NUR ---
pt awake alert and oriented x2, resting in bed. Medications given as ordered. IV on the Left wrist 20g. no signs of distress noted. bed in low and locked position, fall precautions in place. Will endorse to oncoming nurse.
[2020-03-31 20:08] VITALS: BP 108/48
[2020-03-31] MEDS: QUETIAPINE FUMARATE 25 MG TABLET PO SCH (20:56)
--- NOTE | 2020-03-31 23:00 | NUR ---
received pt resting in bed, awake alert and oriented x2-3, hard of hearing. VSS Patient is on RA saturating at 98%. No acute distress noted. C/O pain in right and left arm, administered Dilaudid PRN, effective. IV on the left wrist 20g running D5 1/2 NS at 75ml/hr. all needs attended to. All due medication administered. pt is resting comfortable, kept clean and dry. Safety measures maintained. Pt NPO after midnight. Will continue to monitor.
[2020-04-01] MEDS: HYDROMORPHONE 1 MG/1 ML DISP.SYRIN SQ PRN (01:50)
[2020-04-01] MEDS: IV D5 1/2 NS 1000 ML 1,000 ML IV PRN (01:50)
--- NOTE | 2020-04-01 01:59 | NUR ---
pt screaming " help me" c/o 11/12 pain, administered Dilaudid PRN. Repositioned for comfort. Will monitor for effectiveness.
[2020-04-01 04:00] VITALS: BP 109/65
[2020-04-01] MEDS: OXYCODONE/APAP 5-325 MG TABLET PO SCH ×2 (05:13)
[2020-04-01] MEDS: ONDANSETRON ODT 4 MG TAB.RAPDIS SL SCH ×3 (05:14→20:39)
[2020-04-01] MEDS ORDERED: POLYMYXIN B SULFATE 500,000 UNITS, BACITRACIN 50,000 UNITS, NORMAL SALINE 20 ML MC ONE ×3 (07:00)
[2020-04-01] MEDS ORDERED: VANCOMYCIN 1000 MG VIAL ONE (07:01)
[2020-04-01] MEDS ORDERED: BUPIVACAINE PF 0.5% 30 ML VIAL ONE (07:02)
[2020-04-01 07:03] LABS: BASOPHILS # (AUTO) 0.1 K/uL (0.0-8.0); BASOPHILS % (AUTO) 2.7 % (0.0-2.0); EOSINOPHILS # (AUTO) 0.1 K/uL (0.0-0.7); EOSINOPHILS % (AUTO) 4.1 % (0.0-7.0); HEMATOCRIT 35.2 % (31.2-41.9); HEMOGLOBIN 12.2 g/dL (10.9-14.3); LYMPHOCYTES # (AUTO) 0.9 K/uL (20.0-40.0); LYMPHOCYTES % (AUTO) 28.9 % (20.5-51.5); MEAN CORPUSCULAR HEMOGLOBIN 32.3 uug (24.7-32.8); MEAN CORPUSCULAR HGB CONC 35 g/dL (32.3-35.6); MEAN CORPUSCULAR VOLUME 93.3 fL (75.5-95.3); MONOCYTES # (AUTO) 0.4 K/uL (2.0-10.0); MONOCYTES % (AUTO) 13.3 % (0.0-11.0); NEUTROPHILS # (AUTO) 1.6 K/uL (1.8-8.9); PLATELET COUNT (AUTO) 337 K/uL (179-408); RED BLOOD CELL COUNT(AUTO) 3.77 MIL/uL (3.63-4.92); WHITE BLOOD COUNT (AUTO) 3.1 K/uL (3.8-11.8)
[2020-04-01] MEDS ORDERED: MIDAZOLAM HCL 2 MG/2 ML VIAL ONE (07:10)
[2020-04-01] MEDS ORDERED: FENTANYL CITRATE 100 MCG/2 ML AMPUL ONE ×2 (07:11→10:01)
[2020-04-01] MEDS ORDERED: FENTANYL CITRATE 250 MCG/5 ML AMPUL ONE (07:11)
[2020-04-01] MEDS ORDERED: ROCURONIUM BROMIDE 50 MG/5 ML VIAL ONE (07:12)
[2020-04-01] MEDS ORDERED: HYDROMORPHONE 2 MG/1 ML DISP.SYRIN ONE (07:12)
--- NOTE | 2020-04-01 07:15 | NUR ---
PT WENT TO OR VIA BED FOR SURGERY
[2020-04-01 07:31] LABS: BILIRUBIN,TOTAL 0.4 mg/dL (0.2-1.0); POTASSIUM 4.1 mmol/L (3.5-5.1); TOTAL PROTEIN, SERUM 4.9 g/dL (6.4-8.2)
[2020-04-01] MEDS: DOCUSATE SODIUM 100 MG CAPSULE PO SCH (08:36)
[2020-04-01] MEDS: AMIODARONE HCL 200 MG TABLET PO SCH ×2 (08:36→16:36)
[2020-04-01] MEDS: APIXABAN 5 MG TABLET PO SCH ×2 (08:36→16:36)
[2020-04-01] MEDS: CLOTRIMAZOLE 1% CREAM 30 GM TUBE TOP SCH ×2 (08:37→16:49)
[2020-04-01] MEDS ORDERED: LIDOCAINE-MPF 2% 5 ML VIAL IJ ONE (09:22)
[2020-04-01] MEDS ORDERED: METOCLOPRAMIDE HCL 10 MG/2 ML VIAL IV ONE (09:22)
[2020-04-01] MEDS ORDERED: ONDANSETRON 4 MG/2 ML VIAL IV ONE (09:22)
[2020-04-01] MEDS ORDERED: PROPOFOL 200 MG/20 ML BOTTLE IV ONE (09:22)
[2020-04-01] MEDS ORDERED: NEOSTIGMINE METHYLSULFATE 10 MG/10 ML VIAL IM ONE (09:22)
[2020-04-01] MEDS ORDERED: CEFAZOLIN 1 G VIAL IM ONE (09:22)
[2020-04-01] MEDS ORDERED: SEVOFLURANE 250 ML BOTTLE IH ONE (09:22)
[2020-04-01] MEDS ORDERED: GLYCOPYRROLATE 0.2 MG/ML VIAL IJ ONE (09:22)
[2020-04-01] MEDS ORDERED: IV D5W-0.45% NS +20 KCL 1,000 ML IV ONE (09:53)
--- NOTE | 2020-04-01 11:08 | NUR ---
PT RECEIVED FROM VIA BED IN STABLE CONDITION
[2020-04-01] MEDS: PANTOPRAZOLE SODIUM 40 MG VIAL IV SCH (11:12)
[2020-04-01 11:24] VITALS: BP 154/55
[2020-04-01] MEDS: IV D5W-0.45% NS +20 KCL 1,000 ML IV PRN ×2 (11:30→11:31)
[2020-04-01 15:16] VITALS: BP 150/56
[2020-04-01] MEDS: CEFAZOLIN 1 G in IV DEXTROSE 5% 50 ML IV SCH (15:25)
[2020-04-01] MEDS: HYDROCODONE/APAP 10-325 MG TABLET PO PRN (16:49)
[2020-04-01 20:06] VITALS: BP 165/58
[2020-04-01] MEDS: QUETIAPINE FUMARATE 25 MG TABLET PO SCH (20:39)
--- NOTE | 2020-04-01 21:00 | NUR ---
received pt resting in bed, awake alert and oriented x3, hard of hearing. VSS Patient is on 2L NC saturating at 100%. No acute distress noted. C/O pain in right and left arm, cap refillon left surgical site <3 sec , hand warm to touch. IV on the left wrist 20g, intact and flushed, running D5 1/2 NS at 75ml/hr. All needs attended to. All due medication administered. pt is resting comfortable, kept clean and dry. Safety measures maintained. Will continue plan of care.
[2020-04-01] MEDS: MORPHINE SULFATE 2 MG/1 ML DISP.SYRIN IV PRN (22:09)
--- NOTE | 2020-04-01 22:35 | NUR ---
pt screaming " help me" c/o 11/12 pain, administered morphine PRN. Repositioned for comfort. SCD pumps in place. Bilateral heels offloaded. Will continue to monitor.
[2020-04-02] MEDS: MORPHINE SULFATE 2 MG/1 ML DISP.SYRIN IV PRN ×2 (00:40→22:41)
[2020-04-02] MEDS: CEFAZOLIN 1 G in IV DEXTROSE 5% 50 ML IV SCH (00:40)
[2020-04-02] MEDS: IV D5W-0.45% NS +20 KCL 1,000 ML IV PRN (01:58)
[2020-04-02 04:06] VITALS: BP 145/63
[2020-04-02] MEDS: HYDROCODONE/APAP 10-325 MG TABLET PO PRN ×2 (04:18→13:33)
--- NOTE | 2020-04-02 04:20 | NUR ---
pt screaming " help me" c/o pain, administered hydrocodone PRN. Repositioned for comfort. SCD pumps in place. Bilateral heels offloaded. safety measure maintained. Needs attended too Will continue to monitor.
[2020-04-02] MEDS: ONDANSETRON ODT 4 MG TAB.RAPDIS SL SCH ×3 (05:48→21:57)
[2020-04-02] MEDS: AMIODARONE HCL 200 MG TABLET PO SCH ×2 (08:24→16:10)
[2020-04-02] MEDS: DOCUSATE SODIUM 100 MG CAPSULE PO SCH (08:24)
[2020-04-02] MEDS: CLOTRIMAZOLE 1% CREAM 30 GM TUBE TOP SCH ×2 (08:33→16:11)
[2020-04-02] MEDS: PANTOPRAZOLE SODIUM 40 MG TABLET.DR PO SCH (08:33)
[2020-04-02] MEDS: APIXABAN 5 MG TABLET PO SCH ×2 (09:05→16:10)
[2020-04-02 11:14] VITALS: BP 154/60
[2020-04-02 15:34] VITALS: BP_SYST 156; BP_DIAS 58; BP_DIAS 68
[2020-04-02 20:00] VITALS: BP 132/53
--- NOTE | 2020-04-02 20:00 | NUR ---
RECEIVED PATIENT AWAKE IN BED. A/O X3. C/O NAUSEA. NO C/O PAIN OR DISCOMFORT AT THIS TIME. VS WNL. NO RESP. DISTRESS NOTED. BILATERAL ARMS NOTED IN SLINGS. ELEVATED ON PILLOWS. CALL LIGHT IN REACH. DVT PUMPS IN PLACE. ALL NEEDS ATTENDED. WILL CONTINUE TO MONITOR AND ASSESS.
[2020-04-02] MEDS: QUETIAPINE FUMARATE 25 MG TABLET PO SCH (20:56)
--- NOTE | 2020-04-02 22:45 | NUR ---
PATIENT C/O ABDOMINAL PAIN. IV NOTED TO LEFT HAND, LEAKING AND INFILTRATED. NEW IV HEPLOCK STARTED TO RIGHT FA #22 GAUGE. PATIENT GIVEN MORPHINE 2MG IV PER RESIDENTIAL ADVISOR. PATIENT MADE COMFORTABLE IN BED. BED ALARM IN PLACE. ALL NEEDS ATTENDED. WILL CONTINUE TO MONITOR AND ASSESS.
--- NOTE | 2020-04-02 23:34 | NUR ---
PATIENT ASLEEP IN BED. NO S/S OF ANY PAIN OR DISCOMFORT. WILL CONTINUE TO MONITOR AND ASSESS.
[2020-04-03 04:00] VITALS: BP 142/67
[2020-04-03] MEDS: HYDROCODONE/APAP 10-325 MG TABLET PO PRN ×2 (04:40→09:11)
--- NOTE | 2020-04-03 05:46 | NUR ---
PATIENT AWAKE IN BED. WAS PREVIOUSLY MEDICATED FOR PAIN. NO C/O PAIN OR DISCOMFORT. NO RESP. DISTRESS NOTED. VS WNL. CALL LIGHT IN REACH. ALL NEEDS ATTENDED. WILL CONTINUE TO MONITOR AND ASSESS.
[2020-04-03] MEDS: ONDANSETRON ODT 4 MG TAB.RAPDIS SL SCH ×3 (05:59→21:09)
[2020-04-03] MEDS: PANTOPRAZOLE SODIUM 40 MG TABLET.DR PO SCH (06:00)
[2020-04-03 07:04] LABS: BASOPHILS % (AUTO) 1.1 % (0.0-2.0); EOSINOPHILS % (AUTO) 0.7 % (0.0-7.0); HEMATOCRIT 31.7 % (31.2-41.9); HEMOGLOBIN 11.3 g/dL (10.9-14.3); LYMPHOCYTES # (AUTO) 0.7 K/uL (20.0-40.0); LYMPHOCYTES % (AUTO) 17.8 % (20.5-51.5); MEAN CORPUSCULAR HEMOGLOBIN 32.7 uug (24.7-32.8); MEAN CORPUSCULAR HGB CONC 36 g/dL (32.3-35.6); MEAN CORPUSCULAR VOLUME 91.8 fL (75.5-95.3); MONOCYTES # (AUTO) 0.6 K/uL (2.0-10.0); MONOCYTES % (AUTO) 13.9 % (0.0-11.0); NEUTROPHILS # (AUTO) 2.7 K/uL (1.8-8.9); NEUTROPHILS % (AUTO) 66.5 % (38.5-71.5); PLATELET COUNT (AUTO) 243 K/uL (179-408); RED BLOOD CELL COUNT(AUTO) 3.45 MIL/uL (3.63-4.92)
[2020-04-03] MEDS: AMIODARONE HCL 200 MG TABLET PO SCH ×2 (08:05→16:10)
[2020-04-03] MEDS: DOCUSATE SODIUM 100 MG CAPSULE PO SCH (08:05)
[2020-04-03] MEDS: APIXABAN 5 MG TABLET PO SCH ×2 (08:05→16:11)
[2020-04-03] MEDS: CLOTRIMAZOLE 1% CREAM 30 GM TUBE TOP SCH ×2 (08:52→16:27)
[2020-04-03 11:08] VITALS: BP 155/60
[2020-04-03] MEDS ORDERED: NALOXONE HCL 0.4 MG/ML AMPUL IV PRN (13:30)
[2020-04-03 15:00] VITALS: BP 154/54
[2020-04-03 16:04] LABS: BAND % (MANUAL) 2 % (0-10); LYMPHOCYTES % (MANUAL) 20 % (20-40); MONOCYTES % (MANUAL) 13 % (2-10); NEUTROPHILS % (MANUAL) 65 % (42-75)
[2020-04-03] MEDS: MORPHINE SULFATE 2 MG/1 ML DISP.SYRIN IV PRN (16:06)
[2020-04-03 20:03] VITALS: BP 136/63
[2020-04-03] MEDS: QUETIAPINE FUMARATE 25 MG TABLET PO SCH (20:15)
[2020-04-04 04:00] VITALS: BP 144/54
--- NOTE | 2020-04-04 04:01 | NUR ---
Received pt at the beginning of shift resting in bed. AAO x2, forgetful and hard of hearing noted. No acute distress noted. Denies pain/ discomfort. Good [place] 0. Pt slept mostly throughout the shift. Due meds were given as ordered. Slings on bilateral arms. Skin care rendered. All needs attended to promptly. Safety measures maintained. Call light and personal items within reach. Will continue to monitor.
[2020-04-04] MEDS: HYDROCODONE/APAP 10-325 MG TABLET PO PRN (05:42)
[2020-04-04] MEDS: ONDANSETRON ODT 4 MG TAB.RAPDIS SL SCH ×3 (05:43→21:49)
[2020-04-04] MEDS: PANTOPRAZOLE SODIUM 40 MG TABLET.DR PO SCH (06:04)
[2020-04-04] MEDS: DOCUSATE SODIUM 100 MG CAPSULE PO SCH (08:13)
[2020-04-04] MEDS: APIXABAN 5 MG TABLET PO SCH ×2 (08:14→16:35)
[2020-04-04] MEDS: AMIODARONE HCL 200 MG TABLET PO SCH ×2 (08:22→16:38)
[2020-04-04] MEDS: CLOTRIMAZOLE 1% CREAM 30 GM TUBE TOP SCH ×2 (08:41→16:44)
[2020-04-04 16:00] VITALS: BP 150/71
--- NOTE | 2020-04-04 16:40 | NUR ---
Non admin. Amiodarone, pulse 54
[2020-04-04 20:00] VITALS: BP 152/63
[2020-04-04] MEDS: MORPHINE SULFATE SR 15 MG TABLET.SA PO SCH (20:58)
[2020-04-04] MEDS: QUETIAPINE FUMARATE 25 MG TABLET PO SCH (21:48)
[2020-04-05 04:00] VITALS: BP 101/55
--- NOTE | 2020-04-05 04:04 | NUR ---
Received pt at the beginning of shift resting in bed. AAO x2, forgetful and hard of hearing noted. No acute distress noted. Due meds given as ordered. Pt slept mostly throughout the shift. Slings on bilateral arms. Skin care rendered. All needs attended to promptly. Pt plan to discharge today. Safety measures maintained. Call light and personal items within reach. Will continue to monitor.
[2020-04-05] MEDS: ONDANSETRON ODT 4 MG TAB.RAPDIS SL SCH ×3 (05:34→21:27)
[2020-04-05] MEDS: PANTOPRAZOLE SODIUM 40 MG TABLET.DR PO SCH (06:19)
[2020-04-05 07:00] LABS: BASOPHILS % (AUTO) 0.7 % (0.0-2.0); EOSINOPHILS # (AUTO) 0.1 K/uL (0.0-0.7); EOSINOPHILS % (AUTO) 3.2 % (0.0-7.0); HEMATOCRIT 34.3 % (31.2-41.9); HEMOGLOBIN 11.7 g/dL (10.9-14.3); LYMPHOCYTES % (AUTO) 22.4 % (20.5-51.5); MEAN CORPUSCULAR HEMOGLOBIN 31.6 uug (24.7-32.8); MEAN CORPUSCULAR HGB CONC 34 g/dL (32.3-35.6); MEAN CORPUSCULAR VOLUME 92.4 fL (75.5-95.3); MONOCYTES # (AUTO) 0.4 K/uL (2.0-10.0); MONOCYTES % (AUTO) 8.9 % (0.0-11.0); NEUTROPHILS # (AUTO) 2.9 K/uL (1.8-8.9); NEUTROPHILS % (AUTO) 64.8 % (38.5-71.5); PLATELET COUNT (AUTO) 264 K/uL (179-408); RED BLOOD CELL COUNT(AUTO) 3.71 MIL/uL (3.63-4.92); WHITE BLOOD COUNT (AUTO) 4.5 K/uL (3.8-11.8)
[2020-04-05 07:28] LABS: BILIRUBIN,TOTAL 0.5 mg/dL (0.2-1.0); CREATININE 0.7 mg/dL (0.6-1.3); POTASSIUM 3.6 mmol/L (3.5-5.1); TOTAL PROTEIN, SERUM 5.1 g/dL (6.4-8.2)
[2020-04-05 08:00] VITALS: BP 136/69
--- NOTE | 2020-04-05 08:00 | NUR ---
Received pt in bed, alert and oriented but forgetful at times. On RA. No resp distress noted. Kept comfortable. Will continue to monitor.
[2020-04-05] MEDS: APIXABAN 5 MG TABLET PO SCH ×2 (08:27→17:22)
[2020-04-05] MEDS: DOCUSATE SODIUM 100 MG CAPSULE PO SCH (08:28)
[2020-04-05] MEDS: AMIODARONE HCL 200 MG TABLET PO SCH ×2 (08:28→17:22)
[2020-04-05] MEDS: MORPHINE SULFATE SR 15 MG TABLET.SA PO SCH ×2 (08:30→20:01)
[2020-04-05] MEDS: CLOTRIMAZOLE 1% CREAM 30 GM TUBE TOP SCH ×2 (08:31→17:22)
[2020-04-05] MEDS ORDERED: MAGNESIUM HYDROXIDE 30 ML LIQUID UDC PO ONE (13:45)
[2020-04-05] MEDS ORDERED: Lactose-Free Food PO (15:38)
[2020-04-05] MEDS ORDERED: MAGN400O6 PO (15:38)
[2020-04-05] MEDS ORDERED: PANT40TA2 PO (15:38)
[2020-04-05] MEDS ORDERED: MORP15TA60 PO (15:38)
[2020-04-05] MEDS ORDERED: BISACODYL 5 MG TABLET.DR PO PRN (15:45)
[2020-04-05 16:00] VITALS: BP 134/65
[2020-04-05] MEDS: ENSURE ENLIVE (VAN) 240 ML LIQUID PO SCH (17:23)
[2020-04-05] MEDS: QUETIAPINE FUMARATE 25 MG TABLET PO SCH (19:59)
--- NOTE | 2020-04-05 20:14 | NUR ---
pt resting in bed. Axox2-3, able to make needs known. C/o pain in left arm, administered scheduled MS Contin., will monitor for effect. All due medication administered and tolerated well. VSS, no acute distress noted at this time. Bilateral arms in sling and elevated with pillow. Bilateral heels offloaded with pillow. SCD pump in place. All needs attended too. PM care rendered, kept comfortable. Safety measures in place. Call light within reach. Will monitor throughout the night.
[2020-04-05 20:22] VITALS: BP 122/60
[2020-04-06 04:50] VITALS: BP 129/67
[2020-04-06] MEDS: ONDANSETRON ODT 4 MG TAB.RAPDIS SL SCH ×2 (06:04→14:13)
[2020-04-06] MEDS: PANTOPRAZOLE SODIUM 40 MG TABLET.DR PO SCH (06:04)
[2020-04-06 07:30] VITALS: BP 157/69
--- NOTE | 2020-04-06 08:00 | NUR ---
Received p.t in bed sound asleep. Arousable to tactile or verbal stimuli. No facial grimacing and acute distress noted. Both arm sling is in place. Offload pressure on bilateral heel. SCD pump in place. Vital signs is WNL. Safety measure in place. Per night nurse, p.t will be discharge today. Call light within reach.
[2020-04-06] MEDS: ENSURE ENLIVE (VAN) 240 ML LIQUID PO SCH ×2 (09:00→17:11)
[2020-04-06] MEDS ORDERED: FENTANYL 25 MCG/HR PATCH EACH TD SCH (09:00)
[2020-04-06] MEDS: DOCUSATE SODIUM 100 MG CAPSULE PO SCH (09:29)
[2020-04-06] MEDS: APIXABAN 5 MG TABLET PO SCH ×2 (09:30→17:18)
[2020-04-06] MEDS: MORPHINE SULFATE SR 15 MG TABLET.SA PO SCH (09:32)
[2020-04-06] MEDS: AMIODARONE HCL 200 MG TABLET PO SCH ×2 (09:41→17:24)
[2020-04-06] MEDS: CLOTRIMAZOLE 1% CREAM 30 GM TUBE TOP SCH ×2 (11:28→17:10)
[2020-04-06] MEDS ORDERED: LACT10SO3 PO (13:55)
[2020-04-06 15:05] VITALS: BP 135/49
[2020-04-06] MEDS ORDERED: MORP30TA59 PO (15:20)
[2020-04-06 15:52] LABS: CANCER ANTIGEN 15-3 36.4
[2020-04-06 15:54] LABS: *IMMUNOGLOBULIN G, SERUM 585; ALBUMIN 2.7; ALPHA-1-GLOBULIN 0.2; ALPHA-2-GLOBULIN 0.7; BETA GLOBULIN 0.8; GAMMA GLOBULIN 0.5; IMMUNOGLOBULIN A, SERUM 73; IMMUNOGLOBULIN M, SERUM 48
[2020-04-06 15:55] LABS: A/G RATIO 1.2; GLOBULIN, TOTAL 2.3; M-SPIKE NOT OBSERVED
--- NOTE | 2020-04-06 18:00 | NUR ---
P.t in bed alert and awake. Able to make needs known with difficulty hearing. Vital signs are within normal limits. All due meds are given as ordered. Skin assessment done due for discharge, noted with excoriation on buttocks and perineal area with redness, surgical suture noted on both shoulder from s/p surgery. Voided x2, cleansed and kept dry. Remove hep lock prior to discharge. CM contacted responsible libertarian Mekhi Burrellwer as requested, informed members current status and due for discharge at 6pm. CM also verified address where p.t will be discharge to. All questions and concerns were answered. P[facility]t [facility] Mekhi will be coordinating with Hospice noted. Caregiver Raymond is awaiting for the patient at home. All needs are met. Relayed end of shift report to paramedics and vital sign were taken. P.t remains stable and no acute distress prior to discharge. Discharge at 1813 noted.
== END 2020-04-06 18:30 | disposition hospice, home (50) | DRG 493 ==
LOC: MEDSURG3 22:49
PROVIDERS: ADMIT Student in an Organized Health Care Education/Training Program; ATTEND Nurse Practitioner Family
PROC: 0PSG06Z Reposition Left Humeral Shaft with Intramedullary Internal Fixation Device, Open Approach (ICD-10-PCS; principal; 2020-04-01)
DX: M84.522A Pathological fracture in neoplastic disease, left humerus, initial encounter for fracture (principal); C79.51 Secondary malignant neoplasm of bone; N39.0 Urinary tract infection, site not specified; Z66 Do not resuscitate; Z85.3 Personal history of malignant neoplasm of breast; E87.6 Hypokalemia; D75.1 Secondary polycythemia; F03.90 Unspecified dementia, unspecified severity, without behavioral disturbance, psychotic disturbance, mood disturbance, and anxiety; F32.9 Major depressive disorder, single episode, unspecified; I10 Essential (primary) hypertension; I48.91 Unspecified atrial fibrillation; K21.9 Gastro-esophageal reflux disease without esophagitis; Z86.73 Personal history of transient ischemic attack (TIA), and cerebral infarction without residual deficits; Z90.10 Acquired absence of unspecified breast and nipple; Z98.2 Presence of cerebrospinal fluid drainage device; S42.301D Unspecified fracture of shaft of humerus, right arm, subsequent encounter for fracture with routine healing; X58.XXXD Exposure to other specified factors, subsequent encounter
CPT/HCPCS: 36415; 70030-TC; 71250; 73060; 82378; 82784; 83735; 84100; 84155; 84165; 85025; 86300; 86334; 87086; 88341; 88342; A4649; C1713; C713; C9113; G0378; J0690; J1170; J2250; J2270; J2405; J2765; J3010; J3370; J3490; J7060; Q0162